=== PATIENT | female | born 1940 | race Hispanic/Latino ===

== ENCOUNTER 2017-03-11 15:54 | Observation (INO) | payer MEDICARE ==
[~2017-03-11] VITALS: Ht 132.1 cm; Wt 64.9 kg
[~2017-03-11 15:54] MED LIST: CALC-24 PO; CYAN100010 PO; FERROUS GLUCON325 M1 PO; FOLI1TAB15 PO; FOLI1TAB61 PO; FURO20TA4 PO; LACT10SO9 PO; LEVO50TA11 PO; PANT40TA PO; PROP10TA10 PO; VIT1TABL75 PO
[2017-03-11] MEDS ORDERED: ONDANSETRON HCL 4 MG/2 ML VIAL ONE (16:53)
[2017-03-11] MEDS ORDERED: MORPHINE SULFATE 8 MG/ML VIAL ONE (16:54)
[2017-03-11 17:00] LABS: BASOPHILS % (AUTO) 0.4 % (0.0-5.0); HEMATOCRIT 22.3 % (36-48); LYMPHOCYTES % (AUTO) 8.3 % (21.0-51.0); MEAN CORPUSCULAR HEMOGLOBIN 33.4 pg (27.0-33.0); MEAN CORPUSCULAR HGB CONC 33.8 g/dL (32.0-36.0); MEAN CORPUSCULAR VOLUME 98.9 fL (79-99); MONOCYTES % (AUTO) 10.8 % (3.0-13.0); NEUTROPHILS % (AUTO) 79.5 % (40.0-77.0); PLATELET COUNT (AUTO) 100 K/uL (130-400); RED BLOOD CELL COUNT(AUTO) 2.26 MIL/uL (4.00-5.50); RED CELL DISTRIBUTION WIDTH 19.8 % (11.0-15.5); WHITE BLOOD COUNT (AUTO) 5.7 K/uL (4.8-10.8)
[2017-03-11 17:18] LABS: CREATININE 1.5 mg/dL (0.5-1.5)
[2017-03-11 17:22] LABS: TOTAL PROTEIN, SERUM 5.9 g/dL (6.0-8.3)
[2017-03-11] MEDS ORDERED: SODIUM CHLORIDE 0.9% 1000ML 1,000 ML IV ONE (19:44)
[2017-03-11] MEDS ORDERED: PANTOPRAZOLE SODIUM 40 MG TABLET.DR PO ONE (19:49)
[2017-03-11 20:35] LABS: INR 1.49 (0.85-1.15); PARTIAL THROMBOPLASTIN TIME 35.9 SEC (26.3-35.5); PROTHROMBIN TIME 15.5 SEC (9.6-11.6)
[2017-03-12] VITALS (13 sets, daily range): BP systolic 60–136; BP diastolic 45–88
[2017-03-12 00:35] LABS: BILIRUBIN,URINE Small (NEGATIVE); COLOR,URINE Dark Yellow (YELLOW); GLUCOSE, URINE (UA) Negative (NEGATIVE); KETONES,URINE Trace mg/dL (NEGATIVE); LEUKOCYTE ESTERASE ,URINE Small (NEGATIVE); NITRATE,URINE Positive (NEGATIVE); OCCULT BLOOD,URINE Moderate (NEGATIVE); PROTEIN,URINE Trace (NEGATIVE)
[2017-03-12 00:36] LABS: APPEARANCE,URINE SLIGHTLY CLOUDY (CLEAR)
[2017-03-12 00:53] LABS: BACTERIA,URINE Rare /HPF (None Seen); SQUAMOUS EPITHELIAL CELL,UR Few /LPF (0-2)
[2017-03-12] MEDS ORDERED: POTASSIUM CHLORIDE 20MEQ/100ML 100 ML IV PRN (01:30)
[2017-03-12] MEDS ORDERED: LIDOCAINE HCL-MPF 1% 2ML VIAL IVP PRN (01:30)
[2017-03-12] MEDS ORDERED: ONDANSETRON HCL 4 MG/2 ML VIAL IVP PRN (01:30)
[2017-03-12] MEDS ORDERED: MORPHINE SULFATE 2 MG/ML 1ML SYG IVP PRN ×2 (01:30)
[2017-03-12] MEDS ORDERED: LACTULOSE 20 GM/30 ML UDCUP PO PRN (01:30)
[2017-03-12] MEDS ORDERED: POTASSIUM CHLORIDE 20 MEQ ERTAB PO PRN (01:30)
[2017-03-12] MEDS ORDERED: DEXTROSE 50%-WATER 50 ML DISP.SYRIN IV PRN (01:30)
[2017-03-12] MEDS: CEFTRIAXONE 1GM/D5W 50ML 50 ML IV SCH (01:30)
[2017-03-12] MEDS ORDERED: GLUCAGON 1MG KIT 1 MG ML IM PRN (01:30)
[2017-03-12] MEDS ORDERED: POTASSIUM CHLORIDE 10% ELIXIR 20 MEQ/15 ML UDCUP PO PRN (01:30)
[2017-03-12] MEDS ORDERED: HYDRALAZINE HCL 20 MG/ML VIAL IV PRN (01:30)
[2017-03-12 04:58] LABS: HEMATOCRIT 27.4 % (36-48); MEAN CORPUSCULAR HEMOGLOBIN 31.8 pg (27.0-33.0); MEAN CORPUSCULAR HGB CONC 33.4 g/dL (32.0-36.0); MEAN CORPUSCULAR VOLUME 95.2 fL (79-99); PLATELET COUNT (AUTO) 84 K/uL (130-400); RED BLOOD CELL COUNT(AUTO) 2.88 MIL/uL (4.00-5.50); WHITE BLOOD COUNT (AUTO) 4.4 K/uL (4.8-10.8)
[2017-03-12 05:06] LABS: INR 1.48 (0.85-1.15); PROTHROMBIN TIME 15.4 SEC (9.6-11.6)
[2017-03-12 05:20] LABS: CREATININE 1.4 mg/dL (0.5-1.5); POTASSIUM 4.3 mmol/L (3.5-5.1)
[2017-03-12] MEDS: INSULIN HUMULIN R 100 UNIT/ML 3ML SQ SCH ×4 (06:15→21:00)
[2017-03-12] MEDS: FAMOTIDINE 20MG TAB 20 MG TAB PO SCH ×2 (09:12→22:24)
[2017-03-12 13:11] LABS: GLUCOSE,BODY FLUID 84 mg/dL (1-40)
[2017-03-12] MEDS: ALBUMIN (HUMAN) 25% 200 ML IV SCH (13:24)
[2017-03-12 13:39] LABS: APPEARANCE BODY FLUID CLEAR (CLEAR); COLOR,BODY FLUID YELLOW (LT YELLOW); SPECIMENTYPE,BODY FLUID ASCITES; TOTAL VOLUME,BODY FLUID 90 mL
[2017-03-12 13:40] LABS: BODY FLUID RBC 547 /cu. mm.; BODY FLUID WBC 82 /cu. mm.
[2017-03-12 13:48] LABS: BF EOSINOPHIL 3 %; BF LYMPHOCYTE 32 %; BF MESOTHELIAL 38 %; BF MONOCYTE 14 %
[2017-03-13] MEDS ORDERED: CEFTRIAXONE SODIUM 1 GM ONE (00:25)
[2017-03-13] MEDS: CEFTRIAXONE 1GM/D5W 50ML 50 ML IV SCH (00:28)
[2017-03-13 00:34] VITALS: BP 95/46
[2017-03-13 03:35] VITALS: BP 96/45
[2017-03-13 05:50] LABS: HEMATOCRIT 24.2 % (36-48); MEAN CORPUSCULAR HEMOGLOBIN 32.5 pg (27.0-33.0); MEAN CORPUSCULAR HGB CONC 33.8 g/dL (32.0-36.0); MEAN CORPUSCULAR VOLUME 95.9 fL (79-99); PLATELET COUNT (AUTO) 78 K/uL (130-400); RED BLOOD CELL COUNT(AUTO) 2.52 MIL/uL (4.00-5.50); RED CELL DISTRIBUTION WIDTH 20.2 % (11.0-15.5); WHITE BLOOD COUNT (AUTO) 4.4 K/uL (4.8-10.8)
[2017-03-13 06:16] LABS: CREATININE 1.5 mg/dL (0.5-1.5); POTASSIUM 4.4 mmol/L (3.5-5.1)
[2017-03-13] MEDS: INSULIN HUMULIN R 100 UNIT/ML 3ML SQ SCH (06:40)
[2017-03-13 07:30] VITALS: BP 110/63
[2017-03-13] MEDS: FAMOTIDINE 20MG TAB 20 MG TAB PO SCH (09:13)
[2017-03-13] MEDS ORDERED: SPIR25TA4 PO (10:48)
[2017-03-13] MEDS ORDERED: FURO20TA4 PO (10:48)
[2017-03-13 11:00] VITALS: BP 138/59
[2017-03-13] MEDS: ALBUMIN (HUMAN) 25% 200 ML IV SCH (11:30)
== END 2017-03-13 13:10 | disposition home or self-care (01) ==
LOC: EDH 15:54 → EDHIP 18:41 → UNDOADMOB 19:14 → 3CH 23:11
PROVIDERS: ADMIT Internal Medicine; ATTEND Internal Medicine
DX: R18.8 Other ascites (principal); K74.60 Unspecified cirrhosis of liver; B19.20 Unspecified viral hepatitis C without hepatic coma; D64.9 Anemia, unspecified; I10 Essential (primary) hypertension; K21.9 Gastro-esophageal reflux disease without esophagitis; K76.6 Portal hypertension; Z90.49 Acquired absence of other specified parts of digestive tract
CPT/HCPCS: 36415 ×3; 49083; 80048 ×2; 80053; 81001; 82140; 82270; 82945; 82948 ×3; 84157; 85025; 85027 ×2; 85610 ×2; 85730; 86850; 86900; 86901; 86922; 87071; 87205; 89051; 96365; 96375; 99291; A4218; G0378 ×42; J0696 ×3; J2270; J2405; J7030; P9016; P9046

== ENCOUNTER 2017-03-22 19:10 | Inpatient (IN) | payer MEDICARE ==
[~2017-03-22] VITALS: Ht 157.5 cm; Wt 57.6 kg
[~2017-03-22 19:10] MED LIST changes: +SPIR25TA4 PO
[2017-03-22] MEDS ORDERED: SODIUM CHLORIDE 0.9% 1000ML 1,000 ML IV ONE ×2 (19:29→19:56)
[2017-03-22 19:56] LABS: BILIRUBIN,URINE SMALL (NEGATIVE); COLOR,URINE YELLOW (YELLOW); GLUCOSE, URINE (UA) NEGATIVE (NEGATIVE); KETONES,URINE 5 mg/dL (NEGATIVE); LEUKOCYTE ESTERASE ,URINE SMALL (NEGATIVE); NITRATE,URINE NEGATIVE (NEGATIVE); OCCULT BLOOD,URINE MODERATE (NEGATIVE); PH,URINE 5.5 (5.0-8.0); PROTEIN,URINE 30 (NEGATIVE)
[2017-03-22] MEDS ORDERED: ACETAMINOPHEN 325 MG TAB ONE (19:56)
[2017-03-22] MEDS ORDERED: CEFTRIAXONE SODIUM 1 GM ONE (19:56)
[2017-03-22] MEDS ORDERED: KETOROLAC TROMETHAMINE 15MG/ML ONE (19:56)
[2017-03-22 19:57] LABS: BASOPHILS % (AUTO) 0.3 % (0.0-5.0); EOSINOPHILS % (AUTO) 0.2 % (0.0-8.0); HEMATOCRIT 28.7 % (36-48); LYMPHOCYTES % (AUTO) 4.1 % (21.0-51.0); MEAN CORPUSCULAR HEMOGLOBIN 31.9 pg (27.0-33.0); MEAN CORPUSCULAR HGB CONC 33.8 g/dL (32.0-36.0); MEAN CORPUSCULAR VOLUME 94.4 fL (79-99); NEUTROPHILS % (AUTO) 81.4 % (40.0-77.0); NUCLEATED RED BLOOD CELLS 0.1 % (0.0-0.19); PLATELET COUNT (AUTO) 187 K/uL (130-400); RED BLOOD CELL COUNT(AUTO) 3.04 MIL/uL (4.00-5.50); RED CELL DISTRIBUTION WIDTH 19.7 % (11.0-15.5); WHITE BLOOD COUNT (AUTO) 10.3 K/uL (4.8-10.8)
[2017-03-22 20:06] LABS: APPEARANCE,URINE CLEAR (CLEAR); HYALINE CASTS, URINE 0-1 /LPF (0-1 /LPF)
[2017-03-22 20:07] LABS: BACTERIA,URINE Few /HPF (None Seen)
[2017-03-22 20:08] LABS: INR 1.41 (0.85-1.15); PARTIAL THROMBOPLASTIN TIME 34.4 SEC (26.3-35.5); PROTHROMBIN TIME 14.7 SEC (9.6-11.6)
[2017-03-22 20:26] LABS: CARBON DIOXIDE 22 mmol/L (21-32); CHLORIDE 102 mmol/L (101-111); CREATININE 2.1 mg/dL (0.5-1.5); GLOMERULAR FILTR. RATE CALC 24 mL/min (>60); GLUCOSE,RANDOM 129 mg/dL (70-105); POTASSIUM 4.3 mmol/L (3.5-5.1); SODIUM SERUM 134 mmol/L (136-145); UREA NITROGEN, BLOOD 37 mg/dL (7-18)
[2017-03-22] MEDS ORDERED: VANCOMYCIN 1GM+NS 250ML 250 ML IV ONE (20:34)
[2017-03-22 20:47] LABS: ALANINE AMINOTRANSFERASE 35 U/L (12-78); ALBUMIN 2.3 g/dL (3.5-5.0); ASPARTATE AMINOTRANSFERASE 77 U/L (10-37); BILIRUBIN,TOTAL 2.5 mg/dL (0.2-1.0); CREATINE KINASE MB < 0.5 ng/mL (0.5-3.6); CREATINE KINASE, TOTAL 22 U/L (21-232); MYOGLOBIN 68 ng/mL (10-92); TOTAL PROTEIN, SERUM 6.6 g/dL (6.0-8.3); TROPONIN I < 0.04 ng/mL (0.00-0.06)
[2017-03-22 22:30] VITALS: BP 135/84
[2017-03-22] MEDS ORDERED: RIBA200T4 PO ×2 (23:54)
[2017-03-22] MEDS ORDERED: IRON1CAP30 PO (23:54)
[2017-03-22] MEDS ORDERED: SOFO1TAB PO (23:54)
[2017-03-22] MEDS ORDERED: SIME180C46 PO (23:54)
[2017-03-23] VITALS (17 sets, daily range): BP systolic 102–148; BP diastolic 54–90
[2017-03-23] MEDS ORDERED: GUAIFENESIN-DM 200/20 MG 10 ML PO PRN (00:15)
[2017-03-23] MEDS ORDERED: VANCOMYCIN 1GM+NS 250ML 250 ML IV SCH (00:15)
[2017-03-23] MEDS: FUROSEMIDE 10 MG/ML 4ML VIAL IV SCH (00:15)
[2017-03-23] MEDS ORDERED: ONDANSETRON HCL 4 MG/2 ML VIAL IV PRN (00:15)
[2017-03-23] MEDS ORDERED: MEROPENEM 500MG+NS 50ML 50 ML IV SCH (00:15)
[2017-03-23] MEDS ORDERED: FUROSEMIDE 10 MG/ML 4ML VIAL ONE (00:27)
[2017-03-23 00:41] LABS: CREATINE KINASE MB 0.5 ng/mL (0.5-3.6); CREATINE KINASE, TOTAL 18 U/L (21-232); MYOGLOBIN 54 ng/mL (10-92); TROPONIN I < 0.04 ng/mL (0.00-0.06)
[2017-03-23] MEDS ORDERED: VANCOMYCIN PROTOCOL PER PHARMACY IV SCH (01:00)
[2017-03-23] MEDS: MEROPENEM 500 MG VIAL IVP SCH ×2 (01:07→15:20)
[2017-03-23] MEDS ORDERED: IPRATROPIUM/ALBUTEROL SULFATE 3 ML SOLUTION IH ONE (02:20)
[2017-03-23 04:19] LABS: HEMATOCRIT 23.8 % (36-48); MEAN CORPUSCULAR HEMOGLOBIN 33.1 pg (27.0-33.0); MEAN CORPUSCULAR HGB CONC 35.5 g/dL (32.0-36.0); MEAN CORPUSCULAR VOLUME 93.2 fL (79-99); PLATELET COUNT (AUTO) 118 K/uL (130-400); RED BLOOD CELL COUNT(AUTO) 2.56 MIL/uL (4.00-5.50); RED CELL DISTRIBUTION WIDTH 19.4 % (11.0-15.5); WHITE BLOOD COUNT (AUTO) 6.2 K/uL (4.8-10.8)
[2017-03-23 04:44] LABS: ALBUMIN 1.9 g/dL (3.5-5.0); BILIRUBIN,TOTAL 2.2 mg/dL (0.2-1.0); CREATININE 1.8 mg/dL (0.5-1.5); POTASSIUM 3.9 mmol/L (3.5-5.1); TOTAL PROTEIN, SERUM 5.5 g/dL (6.0-8.3)
[2017-03-23] MEDS: IPRATROPIUM/ALBUTEROL SULFATE 3 ML SOLUTION IH SCH ×3 (06:52→17:03)
[2017-03-23] MEDS ORDERED: ALBUMIN (HUMAN) 25% 100 ML IV SCH (08:15)
[2017-03-23] MEDS ORDERED: FUROSEMIDE 20 MG TABLET PO PRN (08:15)
[2017-03-23] MEDS ORDERED: TRAMADOL HCL 50 MG TABLET PO PRN (08:30)
[2017-03-23] MEDS: CYANOCOBALAMIN (VITAMIN B-12) 1,000 MCG TABLET PO SCH (09:00)
[2017-03-23] MEDS ORDERED: FUROSEMIDE 10 MG/ML 2ML VIAL IV SCH (09:00)
[2017-03-23] MEDS: LACTULOSE 20 GM/30 ML UDCUP PO SCH (09:00)
[2017-03-23] MEDS: FOLIC ACID 1 MG TABLET PO SCH (09:00)
[2017-03-23] MEDS: INTEGRA PO SCH (09:00)
[2017-03-23] MEDS: RIBAVIRIN 600 MG PO SCH (09:00)
[2017-03-23] MEDS ORDERED: PANTOPRAZOLE 40 MG/VIAL IVP SCH (09:00)
[2017-03-23] MEDS: EPCLUSA PO SCH (09:00)
[2017-03-23] MEDS: FAMOTIDINE/PF 20 MG/2 ML VIAL IV SCH (09:44)
[2017-03-23] MEDS: LEVOFLOXACIN 250 MG/D5W 50ML 50 ML IV SCH (09:45)
[2017-03-23] MEDS: SIMETHICONE 80 MG TAB.CHEW PO SCH ×2 (11:30→16:55)
[2017-03-23] MEDS: PROPRANOLOL HCL 10 MG TAB PO SCH ×2 (12:16→21:45)
[2017-03-23] MEDS: SPIRONOLACTONE 25 MG TAB PO SCH (12:17)
[2017-03-23] MEDS: FUROSEMIDE 20 MG TABLET PO SCH (12:18)
[2017-03-23 15:24] LABS: APPEARANCE BODY FLUID CLOUDY (CLEAR); SPECIMENTYPE,BODY FLUID THORACENTESIS FLUID
[2017-03-23 15:25] LABS: COLOR,BODY FLUID ORANGE (LT YELLOW); PH, BODY FLUID 7; TOTAL VOLUME,BODY FLUID 1000 mL
[2017-03-23 15:28] LABS: GLUCOSE,BODY FLUID 84 mg/dL (1-40)
[2017-03-23 15:48] LABS: BODY FLUID RBC 15575 /cu. mm.; BODY FLUID WBC 195 /cu. mm.
[2017-03-23 15:58] LABS: BF LYMPHOCYTE 27 %; BF MONOCYTE 2 %
[2017-03-23] MEDS: RIBAVIRIN PO SCH (21:44)
[2017-03-24] VITALS: BP 113/59
[2017-03-24] MEDS: FUROSEMIDE 10 MG/ML 4ML VIAL IV SCH (00:15)
[2017-03-24] MEDS: IPRATROPIUM/ALBUTEROL SULFATE 3 ML SOLUTION IH SCH ×4 (00:33→19:12)
[2017-03-24] MEDS: MEROPENEM 500 MG VIAL IVP SCH ×2 (01:44→12:57)
[2017-03-24 04:00] VITALS: BP 125/63
[2017-03-24 06:21] LABS: HEMATOCRIT 23.9 % (36-48); MEAN CORPUSCULAR HEMOGLOBIN 31.8 pg (27.0-33.0); MEAN CORPUSCULAR HGB CONC 34.1 g/dL (32.0-36.0); MEAN CORPUSCULAR VOLUME 93.1 fL (79-99); NUCLEATED RED BLOOD CELLS 0.1 % (0.0-0.19); PLATELET COUNT (AUTO) 135 K/uL (130-400); RED BLOOD CELL COUNT(AUTO) 2.56 MIL/uL (4.00-5.50); RED CELL DISTRIBUTION WIDTH 19.4 % (11.0-15.5); WHITE BLOOD COUNT (AUTO) 6.3 K/uL (4.8-10.8)
[2017-03-24 06:33] LABS: ALBUMIN 1.9 g/dL (3.5-5.0); BILIRUBIN,TOTAL 2.3 mg/dL (0.2-1.0); CREATININE 1.8 mg/dL (0.5-1.5); POTASSIUM 3.8 mmol/L (3.5-5.1); TOTAL PROTEIN, SERUM 4.9 g/dL (6.0-8.3)
[2017-03-24 07:30] VITALS: BP 111/57
[2017-03-24] MEDS: LEVOTHYROXINE 50 MCG TABLET PO SCH (07:30)
[2017-03-24] MEDS: SIMETHICONE 80 MG TAB.CHEW PO SCH ×3 (07:30→17:36)
[2017-03-24] MEDS: [UNRECOGNIZED DRUG - OTHER] PO SCH (07:30)
[2017-03-24 07:38] LABS: BAND NEUTROPHILS % (MANUAL) 1 % (0-2); EOSINOPHILS % (MANUAL) 1 % (1-6); LYMPHOCYTES % (MANUAL) 4 % (22-44); MONOCYTES % (MANUAL) 5 % (2-9); SEGMENTED NEUTROPHILS % 89 % (40-70)
[2017-03-24 07:39] LABS: MAN.DIFF COMMENT-IMPRESSION MANUAL DIFFERENTIAL
[2017-03-24] MEDS ORDERED: ALBUMIN (HUMAN) 25% 100 ML IV SCH ×2 (08:15→20:00)
[2017-03-24] MEDS: EPCLUSA PO SCH (09:00)
[2017-03-24] MEDS: INTEGRA PO SCH (09:00)
[2017-03-24] MEDS: RIBAVIRIN 600 MG PO SCH (09:00)
[2017-03-24] MEDS: PROPRANOLOL HCL 10 MG TAB PO SCH ×2 (09:42→21:12)
[2017-03-24] MEDS: SPIRONOLACTONE 25 MG TAB PO SCH (09:42)
[2017-03-24] MEDS: FOLIC ACID 1 MG TABLET PO SCH (09:43)
[2017-03-24] MEDS: FUROSEMIDE 20 MG TABLET PO SCH (09:43)
[2017-03-24] MEDS: LACTULOSE 20 GM/30 ML UDCUP PO SCH (09:43)
[2017-03-24] MEDS: CYANOCOBALAMIN (VITAMIN B-12) 1,000 MCG TABLET PO SCH (09:43)
[2017-03-24] MEDS: FAMOTIDINE/PF 20 MG/2 ML VIAL IV SCH (09:44)
[2017-03-24] MEDS: LEVOFLOXACIN 250 MG/D5W 50ML 50 ML IV SCH (09:44)
[2017-03-24 11:00] VITALS: BP 97/54
[2017-03-24 16:00] VITALS: BP 108/54
[2017-03-24 20:00] VITALS: BP 121/62
[2017-03-24] MEDS ORDERED: VANCOMYCIN 1GM+NS 250ML 250 ML IV SCH (21:00)
[2017-03-24] MEDS: RIBAVIRIN PO SCH (21:00)
[2017-03-25] VITALS (12 sets, daily range): BP systolic 104–145; BP diastolic 53–73
[2017-03-25] MEDS: IPRATROPIUM/ALBUTEROL SULFATE 3 ML SOLUTION IH SCH ×5 (00:45→23:48)
[2017-03-25] MEDS: MEROPENEM 500 MG VIAL IVP SCH ×2 (01:06→15:16)
[2017-03-25 06:12] LABS: HEMATOCRIT 23.6 % (36-48); MEAN CORPUSCULAR HEMOGLOBIN 31.9 pg (27.0-33.0); MEAN CORPUSCULAR HGB CONC 34.5 g/dL (32.0-36.0); MEAN CORPUSCULAR VOLUME 92.5 fL (79-99); PLATELET COUNT (AUTO) 129 K/uL (130-400); RED BLOOD CELL COUNT(AUTO) 2.55 MIL/uL (4.00-5.50); RED CELL DISTRIBUTION WIDTH 19.2 % (11.0-15.5); WHITE BLOOD COUNT (AUTO) 5.5 K/uL (4.8-10.8)
[2017-03-25 06:22] LABS: INR 1.58 (0.85-1.15); PARTIAL THROMBOPLASTIN TIME 42.5 SEC (26.3-35.5); PROTHROMBIN TIME 16.4 SEC (9.6-11.6)
[2017-03-25 06:26] LABS: CREATININE 1.6 mg/dL (0.5-1.5); POTASSIUM 3.9 mmol/L (3.5-5.1)
[2017-03-25] MEDS: LEVOTHYROXINE 50 MCG TABLET PO SCH (07:30)
[2017-03-25] MEDS: [UNRECOGNIZED DRUG - OTHER] PO SCH (07:30)
[2017-03-25] MEDS: SIMETHICONE 80 MG TAB.CHEW PO SCH ×3 (07:30→17:24)
[2017-03-25] MEDS: RIBAVIRIN 600 MG PO SCH (09:00)
[2017-03-25] MEDS: EPCLUSA PO SCH (09:00)
[2017-03-25] MEDS: INTEGRA PO SCH (09:00)
[2017-03-25] MEDS: LACTULOSE 20 GM/30 ML UDCUP PO SCH (12:06)
[2017-03-25] MEDS: FUROSEMIDE 20 MG TABLET PO SCH ×2 (12:07→22:13)
[2017-03-25] MEDS: FOLIC ACID 1 MG TABLET PO SCH (12:07)
[2017-03-25] MEDS: FAMOTIDINE/PF 20 MG/2 ML VIAL IV SCH (12:07)
[2017-03-25] MEDS: PROPRANOLOL HCL 10 MG TAB PO SCH ×2 (12:07→22:14)
[2017-03-25] MEDS: CYANOCOBALAMIN (VITAMIN B-12) 1,000 MCG TABLET PO SCH (12:07)
[2017-03-25] MEDS: LEVOFLOXACIN 250 MG/D5W 50ML 50 ML IV SCH (12:08)
[2017-03-25] MEDS: SPIRONOLACTONE 25 MG TAB PO SCH (12:17)
[2017-03-25] MEDS ORDERED: ALBUMIN (HUMAN) 25% 200 ML IV SCH (14:45)
[2017-03-25 18:02] LABS: APPEARANCE BODY FLUID SLIGHTLY CLOUDY (CLEAR); COLOR,BODY FLUID YELLOW (LT YELLOW); SPECIMENTYPE,BODY FLUID PARACENTESIS; TOTAL VOLUME,BODY FLUID 1000 mL
[2017-03-25 18:03] LABS: BODY FLUID RBC 638 /cu. mm.; BODY FLUID WBC 140 /cu. mm.
[2017-03-25 18:13] LABS: BF LYMPHOCYTE 63 %; BF MONOCYTE 1 %
[2017-03-25 18:19] LABS: PH, BODY FLUID 7
[2017-03-25] MEDS: RIBAVIRIN PO SCH (22:16)
[2017-03-26 00:07] VITALS: BP 110/55
[2017-03-26] MEDS: MEROPENEM 500 MG VIAL IVP SCH (01:19)
[2017-03-26 04:00] VITALS: BP 101/57
[2017-03-26 04:34] LABS: HEMATOCRIT 25.5 % (36-48); MEAN CORPUSCULAR HEMOGLOBIN 31.2 pg (27.0-33.0); MEAN CORPUSCULAR HGB CONC 33.7 g/dL (32.0-36.0); MEAN CORPUSCULAR VOLUME 92.7 fL (79-99); PLATELET COUNT (AUTO) 134 K/uL (130-400); RED BLOOD CELL COUNT(AUTO) 2.75 MIL/uL (4.00-5.50); RED CELL DISTRIBUTION WIDTH 18.9 % (11.0-15.5); WHITE BLOOD COUNT (AUTO) 5.2 K/uL (4.8-10.8)
[2017-03-26 04:55] LABS: CREATININE 1.5 mg/dL (0.5-1.5); POTASSIUM 3.6 mmol/L (3.5-5.1)
[2017-03-26] MEDS: SIMETHICONE 80 MG TAB.CHEW PO SCH ×2 (06:34→11:30)
[2017-03-26] MEDS: LEVOTHYROXINE 50 MCG TABLET PO SCH (06:34)
[2017-03-26] MEDS: [UNRECOGNIZED DRUG - OTHER] PO SCH (06:37)
[2017-03-26] MEDS: IPRATROPIUM/ALBUTEROL SULFATE 3 ML SOLUTION IH SCH ×2 (06:38→11:22)
[2017-03-26 08:00] VITALS: BP 90/50
[2017-03-26] MEDS ORDERED: DOXY100C2 PO (08:25)
[2017-03-26] MEDS ORDERED: SIME180C46 PO (08:25)
[2017-03-26] MEDS ORDERED: SPIR25TA4 PO (08:25)
[2017-03-26] MEDS: EPCLUSA PO SCH (09:00)
[2017-03-26] MEDS: RIBAVIRIN 600 MG PO SCH (09:00)
[2017-03-26] MEDS: INTEGRA PO SCH (09:00)
[2017-03-26 09:23] VITALS: BP 99/53
[2017-03-26] MEDS: SPIRONOLACTONE 25 MG TAB PO SCH (09:24)
[2017-03-26] MEDS: CYANOCOBALAMIN (VITAMIN B-12) 1,000 MCG TABLET PO SCH (09:24)
[2017-03-26] MEDS: LEVOFLOXACIN 250 MG/D5W 50ML 50 ML IV SCH (09:24)
[2017-03-26] MEDS: PROPRANOLOL HCL 10 MG TAB PO SCH (09:25)
[2017-03-26] MEDS: FAMOTIDINE/PF 20 MG/2 ML VIAL IV SCH (09:25)
[2017-03-26] MEDS: FOLIC ACID 1 MG TABLET PO SCH (09:25)
[2017-03-26] MEDS: LACTULOSE 20 GM/30 ML UDCUP PO SCH (09:25)
[2017-03-26] MEDS: FUROSEMIDE 20 MG TABLET PO SCH (09:25)
[2017-03-26 11:00] VITALS: BP 100/58
== END 2017-03-26 12:45 | disposition home or self-care (01) | DRG 432 ==
LOC: EDH 19:10 → OBSVTOIN 21:30 → EDHIP 21:30 → 3BH 22:35
PROVIDERS: ADMIT Family Medicine; ATTEND Family Medicine
PROC: 0W9G3ZZ Drainage of Peritoneal Cavity, Percutaneous Approach (ICD-10-PCS; 2017-03-25)
PROC: 0W993ZZ Drainage of Right Pleural Cavity, Percutaneous Approach (ICD-10-PCS; principal; 2017-03-26)
DX: K74.60 Unspecified cirrhosis of liver (principal); J18.9 Pneumonia, unspecified organism; N17.9 Acute kidney failure, unspecified; J90 Pleural effusion, not elsewhere classified; R18.8 Other ascites; E44.1 Mild protein-calorie malnutrition; D64.9 Anemia, unspecified; N18.3 Chronic kidney disease, stage 3 (moderate); N39.0 Urinary tract infection, site not specified; E03.9 Hypothyroidism, unspecified; I12.9 Hypertensive chronic kidney disease with stage 1 through stage 4 chronic kidney disease, or unspecified chronic kidney disease; B19.20 Unspecified viral hepatitis C without hepatic coma; Z68.23 Body mass index [BMI] 23.0-23.9, adult; Z90.49 Acquired absence of other specified parts of digestive tract
CPT/HCPCS: 32555; 36415; 49083; 71045; 71046; 71250; 80048; 80053; 81001; 82550; 82553; 82945; 82948; 83605; 83615; 83874; 83986; 84157; 84484; 85025; 85027; 85610; 85730; 87040; 87071; 87088; 87205; 87804; 88108; 88305; 89051; 93005; 94640; 94664; A4218; J0696; J1885; J1940; J1956; J2185; J3370; J3490; J7030; P9046

== ENCOUNTER → 2017-07-17 | Outpatient (CLI) | payer MEDICARE ==
[~2017-07-17] MED LIST changes: +ALBUMIN (HUMAN) 25% 200 ML IV ONE; +CARAL PO; +CEFD250S3 PO; +DOXY100C2 PO; +IRON1CAP30 PO; +LACT10SO8 PO; +PANT40TA25 PO; +RIBA200T4 PO; +SIME180C46 PO; +SOFO1TAB PO; -SPIR25TA4 PO; +SPIR25TA6 PO
[2017-07-17 09:59] LABS: BASOPHILS % (AUTO) 0.8 % (0.0-5.0); EOSINOPHILS % (AUTO) 2.1 % (0.0-8.0); HEMATOCRIT 27.2 % (36-48); MEAN CORPUSCULAR HEMOGLOBIN 29.7 pg (27.0-33.0); MEAN CORPUSCULAR HGB CONC 33.8 g/dL (32.0-36.0); MEAN CORPUSCULAR VOLUME 88.1 fL (79-99); MONOCYTES % (AUTO) 11.1 % (3.0-13.0); PLATELET COUNT (AUTO) 102 K/uL (130-400); RED BLOOD CELL COUNT(AUTO) 3.09 MIL/uL (4.00-5.50); RED CELL DISTRIBUTION WIDTH 18.6 % (11.0-15.5)
[2017-07-17 10:10] LABS: ALBUMIN 1.7 g/dL (3.5-5.0); BILIRUBIN,TOTAL 1.3 mg/dL (0.2-1.0); CREATININE 1.3 mg/dL (0.5-1.5); POTASSIUM 5.1 mmol/L (3.5-5.1); TOTAL PROTEIN, SERUM 6.4 g/dL (6.0-8.3)
[2017-07-17 10:18] LABS: INR 1.27 (0.85-1.15); PARTIAL THROMBOPLASTIN TIME 30.6 SEC (26.3-35.5); PROTHROMBIN TIME 13.3 SEC (9.6-11.6)
[2017-07-17 13:02] LABS: ALBUMIN,BODY FLUID < 0.6 g/dL
[2017-07-17 14:04] LABS: APPEARANCE BODY FLUID SLIGHTLY CLOUDY (CLEAR); COLOR,BODY FLUID LT YELLOW (LT YELLOW); SPECIMENTYPE,BODY FLUID ASCITES; TOTAL VOLUME,BODY FLUID 1000 mL
[2017-07-17 14:05] LABS: BODY FLUID RBC 36 /cu. mm.; BODY FLUID WBC 43 /cu. mm.
[2017-07-17 14:17] LABS: BF EOSINOPHIL 6 %; BF LYMPHOCYTE 50 %; BF MESOTHELIAL 6 %; BF MONOCYTE 3 %
== END | disposition home or self-care (01) ==
LOC: RAH 09:25
PROVIDERS: ATTEND Internal Medicine Gastroenterology
DX: R18.8 Other ascites (principal); Z79.01 Long term (current) use of anticoagulants
CPT/HCPCS: 36415; 49083; 80053; 82042; 84157; 85025; 85610; 85730; 87071; 87205; 88108; 88305; 89051; P9046

== ENCOUNTER → 2017-07-31 | Outpatient (CLI) | payer MEDICARE ==
[~2017-07-31] MED LIST changes: -ALBUMIN (HUMAN) 25% 200 ML IV ONE; +ALBUMIN (HUMAN) 25% 200 ML IV SCH
[2017-07-31 08:16] LABS: EOSINOPHILS % (AUTO) 2.9 % (0.0-8.0); HEMATOCRIT 25.9 % (36-48); MEAN CORPUSCULAR HGB CONC 33.3 g/dL (32.0-36.0); MONOCYTES % (AUTO) 13.7 % (3.0-13.0); NEUTROPHILS % (AUTO) 68.4 % (40.0-77.0); NUCLEATED RED BLOOD CELLS 0.1 % (0.0-0.19); PLATELET COUNT (AUTO) 110 K/uL (130-400); RED BLOOD CELL COUNT(AUTO) 2.88 MIL/uL (4.00-5.50); RED CELL DISTRIBUTION WIDTH 20.5 % (11.0-15.5); WHITE BLOOD COUNT (AUTO) 2.9 K/uL (4.8-10.8)
[2017-07-31 08:26] LABS: CREATININE 1.4 mg/dL (0.5-1.5)
[2017-07-31 08:27] LABS: INR 1.31 (0.85-1.15); PARTIAL THROMBOPLASTIN TIME 30.1 SEC (26.3-35.5); PROTHROMBIN TIME 13.7 SEC (9.6-11.6)
[2017-07-31 08:30] LABS: BILIRUBIN,TOTAL 1.2 mg/dL (0.2-1.0); TOTAL PROTEIN, SERUM 6.1 g/dL (6.0-8.3)
[2017-07-31 08:36] LABS: BASOPHILS % (MANUAL) 1 % (0-2); EOSINOPHILS % (MANUAL) 1 % (1-6); LYMPHOCYTES % (MANUAL) 10 % (22-44); MAN.DIFF COMMENT-IMPRESSION MANUAL DIFFERENTIAL; MONOCYTES % (MANUAL) 12 % (2-9); PLATELET MORPHOLOGY COMMENT SLIGHTLY DECREASED; SEGMENTED NEUTROPHILS % 76 % (40-70)
[2017-07-31 12:02] LABS: ALBUMIN,BODY FLUID < 0.6 g/dL
[2017-07-31 12:18] LABS: APPEARANCE BODY FLUID CLEAR (CLEAR); COLOR,BODY FLUID YELLOW (LT YELLOW); SPECIMENTYPE,BODY FLUID ASCITES; TOTAL VOLUME,BODY FLUID 2300 mL
[2017-07-31 12:19] LABS: BODY FLUID RBC 78 /cu. mm.; BODY FLUID WBC 62 /cu. mm.
[2017-07-31 12:40] LABS: BF LYMPHOCYTE 51 %; BF MESOTHELIAL 18 %; BF MONOCYTE 26 %
== END | disposition home or self-care (01) ==
LOC: RAH 07:53
PROVIDERS: ATTEND Internal Medicine Gastroenterology
DX: R18.8 Other ascites (principal); Z79.01 Long term (current) use of anticoagulants
CPT/HCPCS: 36415; 49083; 80053; 82042; 84157; 85025; 85610; 85730; 87071; 87205; 88108; 88305; 89051; P9046

== ENCOUNTER 2017-08-14 10:00 | Inpatient (IN) | payer MEDICARE ==
[~2017-08-14] VITALS: Ht 157.5 cm; Wt 49.6 kg
[~2017-08-14 10:00] MED LIST changes: -ALBUMIN (HUMAN) 25% 200 ML IV SCH; -CARAL PO; -CEFD250S3 PO; -LACT10SO8 PO; -PANT40TA25 PO
[2017-08-14 10:36] LABS: BASOPHILS % (AUTO) 0.3 % (0.0-5.0); EOSINOPHILS % (AUTO) 0.6 % (0.0-8.0); HEMATOCRIT 22.8 % (36-48); LYMPHOCYTES % (AUTO) 8.4 % (21.0-51.0); MEAN CORPUSCULAR HEMOGLOBIN 31.1 pg (27.0-33.0); MEAN CORPUSCULAR HGB CONC 33.8 g/dL (32.0-36.0); MEAN CORPUSCULAR VOLUME 91.8 fL (79-99); MONOCYTES % (AUTO) 8.8 % (3.0-13.0); NEUTROPHILS % (AUTO) 81.9 % (40.0-77.0); NUCLEATED RED BLOOD CELLS 0.1 % (0.0-0.19); PLATELET COUNT (AUTO) 88 K/uL (130-400); RED BLOOD CELL COUNT(AUTO) 2.48 MIL/uL (4.00-5.50); RED CELL DISTRIBUTION WIDTH 21.3 % (11.0-15.5); WHITE BLOOD COUNT (AUTO) 3.7 K/uL (4.8-10.8)
[2017-08-14 10:46] LABS: CREATININE 1.4 mg/dL (0.5-1.5); POTASSIUM 4.8 mmol/L (3.5-5.1)
[2017-08-14 10:47] LABS: INR 1.26 (0.85-1.15); PARTIAL THROMBOPLASTIN TIME 26.5 SEC (26.3-35.5); PROTHROMBIN TIME 13.2 SEC (9.6-11.6)
[2017-08-14 10:59] LABS: ALBUMIN 2.5 g/dL (3.5-5.0); BILIRUBIN,TOTAL 1.9 mg/dL (0.2-1.0); CREATINE KINASE MB 1.5 ng/mL (0.5-3.6); TOTAL PROTEIN, SERUM 6.9 g/dL (6.0-8.3)
[2017-08-14 11:30] LABS: APPEARANCE,URINE Clear (CLEAR); BILIRUBIN,URINE Negative (NEGATIVE); COLOR,URINE Yellow (YELLOW); GLUCOSE, URINE (UA) Negative (NEGATIVE); KETONES,URINE Negative (NEGATIVE); LEUKOCYTE ESTERASE ,URINE Small (NEGATIVE); NITRATE,URINE Negative (NEGATIVE); OCCULT BLOOD,URINE Moderate (NEGATIVE); PH,URINE 6.5 (5.0-8.0); PROTEIN,URINE Negative (NEGATIVE)
[2017-08-14] MEDS ORDERED: LACTULOSE 20 GM/30 ML UDCUP ONE ×2 (11:52→17:00)
[2017-08-14 12:07] LABS: BACTERIA,URINE Few /HPF (None Seen)
[2017-08-14 12:08] LABS: MUCUS,URINE Rare LPF (None Seen); SQUAMOUS EPITHELIAL CELL,UR Rare /HPF (0-2)
[2017-08-14 12:09] LABS: RBC,URINE 0-1 /HPF (0-1)
[2017-08-14] MEDS ORDERED: DEXTROSE 5 % AND 0.9 % NACL 1,000 ML IV ONE (14:44)
[2017-08-14] MEDS ORDERED: ALBUMIN (HUMAN) 25% 200 ML IV ONE (14:44)
[2017-08-14] MEDS ORDERED: KETOROLAC TROMETHAMINE 15MG/ML ONE (20:13)
[2017-08-14 21:10] VITALS: BP 92/54
[2017-08-14] MEDS ORDERED: KETOROLAC TROMETHAMINE 15MG/ML IV PRN (23:45)
[2017-08-14] MEDS ORDERED: LACTULOSE 20 GM/30 ML UDCUP PR PRN (23:45)
[2017-08-14] MEDS ORDERED: DEXTROSE 5 % AND 0.9 % NACL 1,000 ML IV SCH (23:45)
[2017-08-15] MEDS ORDERED: LACTULOSE 20 GM/30 ML UDCUP PO SCH
[2017-08-15] MEDS ORDERED: KETOROLAC TROMETHAMINE 15MG/ML IV PRN
[2017-08-15 00:12] VITALS: BP 92/50
[2017-08-15] MEDS: LACTULOSE 20 GM/30 ML UDCUP PO SCH ×5 (01:09→21:50)
[2017-08-15 04:16] VITALS: BP 92/53
[2017-08-15 05:37] LABS: MEAN CORPUSCULAR HEMOGLOBIN 31.2 pg (27.0-33.0); MEAN CORPUSCULAR VOLUME 91.8 fL (79-99); NUCLEATED RED BLOOD CELLS 0.5 % (0.0-0.19); PLATELET COUNT (AUTO) 74 K/uL (130-400); RED CELL DISTRIBUTION WIDTH 21.2 % (11.0-15.5); WHITE BLOOD COUNT (AUTO) 3.4 K/uL (4.8-10.8)
[2017-08-15 05:46] LABS: CREATININE 1.5 mg/dL (0.5-1.5); POTASSIUM 4.5 mmol/L (3.5-5.1)
[2017-08-15 06:04] LABS: HEMATOCRIT 17.4 % (36-48)
[2017-08-15 08:03] VITALS: BP 91/42
[2017-08-15] MEDS ORDERED: ENOXAPARIN SODIUM 30 MG/0.3 ML SQ SCH (09:00)
[2017-08-15] MEDS ORDERED: FAMOTIDINE 20MG TAB 20 MG TAB PO SCH (09:00)
[2017-08-15] MEDS ORDERED: SODIUM CHLORIDE 0.9% 500ML 500 ML IV ONE (11:09)
[2017-08-15 12:00] VITALS: BP 91/48
[2017-08-15] MEDS: DEXTROSE 5 % AND 0.9 % NACL 1,000 ML IV SCH (12:30)
[2017-08-15 16:00] VITALS: BP 104/57
[2017-08-15] MEDS ORDERED: MAGNESIUM CITRATE 296 ML SOLUTION PO ONE (19:15)
[2017-08-15] MEDS ORDERED: PEG 3350/NA SULF,BICARB,CL/KCL 4000 ML SOLN PO ONE (19:15)
[2017-08-15 20:08] VITALS: BP 106/51
[2017-08-15] MEDS ORDERED: ONDANSETRON HCL 4 MG/2 ML VIAL ONE (22:58)
[2017-08-15] MEDS ORDERED: ONDANSETRON HCL 4 MG/2 ML VIAL IVP PRN (23:00)
[2017-08-16] VITALS (21 sets, daily range): BP systolic 99–133; BP diastolic 52–75
[2017-08-16 04:00] LABS: BASOPHILS % (AUTO) 0.4 % (0.0-5.0); EOSINOPHILS % (AUTO) 0.1 % (0.0-8.0); HEMATOCRIT 27.1 % (36-48); LYMPHOCYTES % (AUTO) 4.4 % (21.0-51.0); MEAN CORPUSCULAR HEMOGLOBIN 30.7 pg (27.0-33.0); MEAN CORPUSCULAR VOLUME 87.6 fL (79-99); MONOCYTES % (AUTO) 11.6 % (3.0-13.0); NEUTROPHILS % (AUTO) 83.5 % (40.0-77.0); NUCLEATED RED BLOOD CELLS 0.1 % (0.0-0.19); PLATELET COUNT (AUTO) 71 K/uL (130-400); RED CELL DISTRIBUTION WIDTH 19.7 % (11.0-15.5); WHITE BLOOD COUNT (AUTO) 7.1 K/uL (4.8-10.8)
[2017-08-16] MEDS: LACTULOSE 20 GM/30 ML UDCUP PO SCH ×8 (04:00→23:35)
[2017-08-16 04:12] LABS: INR 1.49 (0.85-1.15); PROTHROMBIN TIME 15.5 SEC (9.6-11.6)
[2017-08-16 04:28] LABS: ALBUMIN 2.3 g/dL (3.5-5.0); CREATININE 1.5 mg/dL (0.5-1.5); TOTAL PROTEIN, SERUM 5.4 g/dL (6.0-8.3)
[2017-08-16] MEDS: DEXTROSE 5 % AND 0.9 % NACL 1,000 ML IV SCH ×4 (04:38→23:41)
[2017-08-16] MEDS: FAMOTIDINE/PF 20 MG/2 ML VIAL IV SCH (10:11)
[2017-08-16] MEDS ORDERED: PROPOFOL 10 MG/ML 20ML VIAL IV ONE (14:24)
[2017-08-16 16:01] LABS: APPEARANCE,URINE Clear (CLEAR); BILIRUBIN,URINE Small (NEGATIVE); COLOR,URINE Orange (YELLOW); GLUCOSE, URINE (UA) Negative (NEGATIVE); KETONES,URINE Trace mg/dL (NEGATIVE); LEUKOCYTE ESTERASE ,URINE Trace (NEGATIVE); NITRATE,URINE Positive (NEGATIVE); OCCULT BLOOD,URINE Trace (NEGATIVE); PH,URINE 5.5 (5.0-8.0); PROTEIN,URINE Trace (NEGATIVE)
[2017-08-16 16:38] LABS: BACTERIA,URINE Rare /HPF (None Seen); SQUAMOUS EPITHELIAL CELL,UR 0-2 /HPF (0-2); WBC,URINE 0-1 /HPF (0-1)
[2017-08-16 16:39] LABS: RBC,URINE 0-1 /HPF (0-1)
[2017-08-16] MEDS: SUCRALFATE 1 GM/10 ML PO SCH ×2 (17:21→20:53)
[2017-08-16] MEDS: PANTOPRAZOLE SODIUM 40 MG TABLET.DR PO SCH (20:53)
[2017-08-17 00:08] VITALS: BP 108/63
[2017-08-17 04:08] VITALS: BP 102/60
[2017-08-17] MEDS: LACTULOSE 20 GM/30 ML UDCUP PO SCH ×6 (04:19→20:00)
[2017-08-17 05:28] LABS: BASOPHILS % (AUTO) 0.7 % (0.0-5.0); EOSINOPHILS % (AUTO) 2.6 % (0.0-8.0); HEMATOCRIT 26.7 % (36-48); MEAN CORPUSCULAR HEMOGLOBIN 31.6 pg (27.0-33.0); MEAN CORPUSCULAR HGB CONC 35.4 g/dL (32.0-36.0); MEAN CORPUSCULAR VOLUME 89.2 fL (79-99); MONOCYTES % (AUTO) 15.8 % (3.0-13.0); NEUTROPHILS % (AUTO) 74.9 % (40.0-77.0); PLATELET COUNT (AUTO) 80 K/uL (130-400); RED BLOOD CELL COUNT(AUTO) 2.99 MIL/uL (4.00-5.50); WHITE BLOOD COUNT (AUTO) 6.9 K/uL (4.8-10.8)
[2017-08-17 05:38] LABS: ALBUMIN 2.1 g/dL (3.5-5.0); BILIRUBIN,TOTAL 2.2 mg/dL (0.2-1.0); CREATININE 1.3 mg/dL (0.5-1.5); MAGNESIUM 1.9 mg/dL (1.80-2.40); PHOSPHORUS 2.7 mg/dL (2.5-4.9); POTASSIUM 3.8 mmol/L (3.5-5.1); TOTAL PROTEIN, SERUM 5.3 g/dL (6.0-8.3)
[2017-08-17 07:33] LABS: ABG HCO3 14.5 mmol/L (21.0-28.0); ABG OXYGEN SATURATION 95.7 % (95.0-99.0); ABG PCO2 24 mmHg (32-45)
[2017-08-17 08:00] VITALS: BP 103/60
[2017-08-17] MEDS: SUCRALFATE 1 GM/10 ML PO SCH ×4 (08:52→21:37)
[2017-08-17] MEDS: FAMOTIDINE/PF 20 MG/2 ML VIAL IV SCH (08:52)
[2017-08-17] MEDS: PANTOPRAZOLE SODIUM 40 MG TABLET.DR PO SCH ×2 (08:52→21:36)
[2017-08-17 12:00] VITALS: BP 130/67
[2017-08-17 16:30] VITALS: BP 120/51
[2017-08-17 19:10] VITALS: BP 113/68
[2017-08-17] MEDS: PROPRANOLOL HCL 10 MG TAB PO SCH (21:00)
[2017-08-18] VITALS (7 sets, daily range): BP systolic 107–121; BP diastolic 56–65
[2017-08-18] MEDS: LACTULOSE 20 GM/30 ML UDCUP PO SCH ×5 (03:44→20:43)
[2017-08-18] MEDS: LEVOTHYROXINE 50 MCG TABLET PO SCH (06:38)
[2017-08-18] MEDS: SPIRONOLACTONE 25 MG TAB PO SCH (08:54)
[2017-08-18] MEDS: FUROSEMIDE 20 MG TABLET PO SCH (08:54)
[2017-08-18] MEDS: PANTOPRAZOLE SODIUM 40 MG TABLET.DR PO SCH ×2 (08:54→20:43)
[2017-08-18] MEDS: FAMOTIDINE/PF 20 MG/2 ML VIAL IV SCH (08:54)
[2017-08-18] MEDS: FOLIC ACID 1 MG TABLET PO SCH (08:54)
[2017-08-18] MEDS: PROPRANOLOL HCL 10 MG TAB PO SCH ×2 (08:54→20:43)
[2017-08-18] MEDS: SUCRALFATE 1 GM/10 ML PO SCH ×4 (08:57→20:43)
[2017-08-18] MEDS ORDERED: LACTULOSE 20 GM/30 ML UDCUP PO SCH (09:00)
[2017-08-18] MEDS ORDERED: LACT10SO9 PO (11:10)
[2017-08-18] MEDS: CEFDINIR 250MG/5ML 60ML BOTTLE PO SCH ×2 (15:29→23:45)
[2017-08-19] VITALS (9 sets, daily range): BP systolic 93–109; BP diastolic 52–86
[2017-08-19 06:22] LABS: BASOPHILS % (AUTO) 0.7 % (0.0-5.0); EOSINOPHILS % (AUTO) 5.1 % (0.0-8.0); HEMATOCRIT 26.8 % (36-48); LYMPHOCYTES % (AUTO) 9.1 % (21.0-51.0); MEAN CORPUSCULAR HEMOGLOBIN 31.6 pg (27.0-33.0); MEAN CORPUSCULAR HGB CONC 35.2 g/dL (32.0-36.0); MEAN CORPUSCULAR VOLUME 89.9 fL (79-99); MONOCYTES % (AUTO) 15.6 % (3.0-13.0); NEUTROPHILS % (AUTO) 69.5 % (40.0-77.0); NUCLEATED RED BLOOD CELLS 0.1 % (0.0-0.19); PLATELET COUNT (AUTO) 87 K/uL (130-400); RED BLOOD CELL COUNT(AUTO) 2.98 MIL/uL (4.00-5.50); RED CELL DISTRIBUTION WIDTH 19.6 % (11.0-15.5); WHITE BLOOD COUNT (AUTO) 5.9 K/uL (4.8-10.8)
[2017-08-19 06:23] LABS: CREATININE 1.3 mg/dL (0.5-1.5); POTASSIUM 3.9 mmol/L (3.5-5.1)
[2017-08-19] MEDS: LEVOTHYROXINE 50 MCG TABLET PO SCH ×2 (06:26→08:36)
[2017-08-19] MEDS: SPIRONOLACTONE 25 MG TAB PO SCH (08:36)
[2017-08-19] MEDS: PANTOPRAZOLE SODIUM 40 MG TABLET.DR PO SCH (08:36)
[2017-08-19] MEDS: FUROSEMIDE 20 MG TABLET PO SCH (08:36)
[2017-08-19] MEDS: PROPRANOLOL HCL 10 MG TAB PO SCH (08:37)
[2017-08-19] MEDS: FOLIC ACID 1 MG TABLET PO SCH (08:37)
[2017-08-19] MEDS: LACTULOSE 20 GM/30 ML UDCUP PO SCH ×2 (08:39→15:04)
[2017-08-19] MEDS: SUCRALFATE 1 GM/10 ML PO SCH ×2 (08:40→12:31)
[2017-08-19] MEDS ORDERED: CEFDINIR 250MG/5ML 60ML BOTTLE PO SCH ×2 (09:00→09:43)
[2017-08-19] MEDS ORDERED: PANT40TA PO (15:23)
[2017-08-19] MEDS ORDERED: CARAL PO (15:23)
[2017-08-19] MEDS ORDERED: FOLI1TAB15 PO (15:23)
[2017-08-19] MEDS ORDERED: CEFD250S3 PO (15:23)
[2017-08-27] MEDS ORDERED: LACT10SO8 PO (01:01)
[2017-08-27] MEDS ORDERED: PANT40TA25 PO (01:01)
== END 2017-08-19 17:35 | disposition home or self-care (01) | DRG 441 ==
LOC: EDH 10:00 → EDHIP 12:00 → 4BH 21:06
PROVIDERS: ADMIT Internal Medicine Nephrology; ATTEND Internal Medicine Nephrology
PROC: 0W9G3ZZ Drainage of Peritoneal Cavity, Percutaneous Approach (ICD-10-PCS; 2017-08-14)
PROC: 30233N1 Transfusion of Nonautologous Red Blood Cells into Peripheral Vein, Percutaneous Approach (ICD-10-PCS; principal; 2017-08-15)
PROC: 0DJ08ZZ Inspection of Upper Intestinal Tract, Via Natural or Artificial Opening Endoscopic (ICD-10-PCS; 2017-08-16)
PROC: 0W9G3ZZ Drainage of Peritoneal Cavity, Percutaneous Approach (ICD-10-PCS; 2017-08-19)
DX: K72.90 Hepatic failure, unspecified without coma (principal); E43 Unspecified severe protein-calorie malnutrition; K31.811 Angiodysplasia of stomach and duodenum with bleeding; I85.11 Secondary esophageal varices with bleeding; K76.6 Portal hypertension; J90 Pleural effusion, not elsewhere classified; R18.8 Other ascites; D62 Acute posthemorrhagic anemia; C18.9 Malignant neoplasm of colon, unspecified; D68.4 Acquired coagulation factor deficiency; N39.0 Urinary tract infection, site not specified; K74.60 Unspecified cirrhosis of liver; B19.20 Unspecified viral hepatitis C without hepatic coma; E03.9 Hypothyroidism, unspecified; B18.2 Chronic viral hepatitis C; D69.6 Thrombocytopenia, unspecified; D73.1 Hypersplenism; E88.09 Other disorders of plasma-protein metabolism, not elsewhere classified; K27.9 Peptic ulcer, site unspecified, unspecified as acute or chronic, without hemorrhage or perforation; K31.89 Other diseases of stomach and duodenum; D63.8 Anemia in other chronic diseases classified elsewhere; K29.60 Other gastritis without bleeding; K29.80 Duodenitis without bleeding; K55.20 Angiodysplasia of colon without hemorrhage; Z83.3 Family history of diabetes mellitus; Z90.49 Acquired absence of other specified parts of digestive tract; Z68.20 Body mass index [BMI] 20.0-20.9, adult; Z98.51 Tubal ligation status
CPT/HCPCS: 36415; 36600; 49083; 71045; 71250; 76705; 80048; 80053; 81001; 82105; 82140; 82270; 82550; 82553; 82803; 83735; 83880; 84100; 84484; 85025; 85027; 85610; 85730; 86677; 86850; 86900; 86901; 86905; 86922; 87040; 87088; 93005; A4344; J1650; J1885; J2405; J2704; J3490; J7040; J7042; P9016; P9046